=== PATIENT | male | born 1930 | race Caucasian/White ===

== ENCOUNTER 2016-02-09 22:00 | Emergency (ER) | payer MEDICARE, OTHER ==
--- NOTE | 2016-02-09 22:40 | RAD ---
EXAM DESCRIPTION: XR CHEST 1 VIEW CLINICAL HISTORY: 85-year-old male with wheezing. COMPARISON: 07/03/2015. TECHNIQUE: Single AP view of the chest was obtained portably. FINDINGS: Cardiac mediastinal silhouette poorly visualized secondary to low lung volumes and dense adjacent opacification. Tortuous atherosclerotic thoracic aorta. Low lung volumes and dense airspace opacification. Bilaterally left greater than right suggesting pleural fluid collection, edema with or without superimposed infectious process. No gross pneumothoraces. Right-sided ventriculoperitoneal shunt catheter is identified terminating off the field of view of the examination. The tip is not visualized. The visualized bones reveal diffuse demineralization and degenerative change. IMPRESSION: Low lung volumes and dense airspace opacification. Bilaterally left greater than right suggesting pleural fluid collection, edema with or without superimposed infectious process. Cardiac decompensation, multifocal pneumonia may be considered in the differential. Electronically signed by: Josette Valdivia MD 02/09/2016 22:38
[2016-02-09 22:46] VITALS: TEMP 101.2
--- NOTE | 2016-02-09 23:25 | ED.PDOC ---
History of Present Illness - General Chief Complaint: Respiratory Problem Stated Complaint: fever and oxygen desaturation Time Seen by Provider: 02/09/16 23:24 Source: patient, RN notes reviewed, Vital Signs reviewed, EMS notes reviewed Exam Limitations: no limitations - History of Present Illness Initial Comments: stated that he developed fever and sob at about 7pm tonight got worse and decided to call ems Timing/Duration: 4-6 hours Severity: moderate Improving Factors: nothing Worsening Factors: nothing Associated Symptoms: shortness of breath Allergies/Adverse Reactions: Allergies NO KNOWN ALLERGY Allergy (Verified 07/03/15 10:58) Home Medications: Ambulatory Orders Aspirin [Aspirin Adult Low Dose] 81 mg PO DAILY 07/03/15 Cetirizine HCl [ZyrTEC] 10 mg PO DAILY 07/03/15 Dasatinib [Sprycel] 50 mg PO DAILY 07/03/15 Metoprolol Tartrate 25 mg PO DAILY 07/03/15 Tramadol HCl 50 mg PO Q6H PRN 07/03/15 predniSONE [Prednisone] 10 mg PO DAILY 07/03/15 Polyethylene Glycol 3350 [Miralax] 17 gm PO QDAC PRN #30 pckt 02/06/16 Calcium 600 mg PO 02/10/16 Cyanocobalamin [Vitamin B-12 Tr] 1,000 mcg PO 02/10/16 Memantine HCl-Donepezil HCl [Namzaric 14-10 mg] 1 cap PO 02/10/16 Review of Systems - Review of Systems Constitutional: States: fever EENTM: States: no symptoms reported Respiratory: States: see HPI, short of breath Cardiology: States: no symptoms reported Gastrointestinal/Abdominal: States: no symptoms reported Genitourinary: States: other - urgency Musculoskeletal: States: back pain, joint pain Neurological: States: depressed, emotional problems Endocrine: States: no symptoms reported Hematologic/Lymphatic: States: anemia, other - leukemia Past Medical History (General) - Patient Medical History Hx Cardiac Disorders: Yes - atrial fibrillation Hx Hypertension: Yes Hx Diabetes: No Hx Cancer: Yes - chronic lymphocytic leukemia Hx Other PMH: Yes - rheumatoid arthritis Surgical History: other - knee,elbow, carotid endarterectomy - Vaccination History Hx Tetanus, Diphtheria Vaccination: No Hx Influenza Vaccination: Yes Hx Pneumococcal Vaccination: Yes - Social History Hx Tobacco Use: Yes Hx Alcohol Use: No Hx Substance Use: No Hx Substance Use Treatment: No Hx Depression: No - Female History Patient : No Family Medical History - Family History Father Family History: Unknown Living Status: Hx Cardiac Disease: Yes Hx Family Diabetes: Yes Hx Family Cancer: Yes - lung,kidney Physical Exam - Physical Exam General Appearance: Alert, Comfortable, No apparent distress Ears, Nose, Throat: normal ENT inspection, normal pharynx Neck: non-tender, full range of motion, supple Respiratory: chest non-tender, decreased breath sounds, rales Cardiovascular/Chest: tachycardia - heart rate 98, irregularly irregular Gastrointestinal/Abdominal: non tender, soft, no organomegaly, no pulsatile mass Back Exam: no CVA tenderness, no vertebral tenderness Extremity: non-tender, normal inspection, no calf tenderness Neurologic: no motor/sensory deficits, alert, normal mood/affect Skin Exam: normal color, pallor Lymphatic: no adenopathy Progress - Results/Orders Results/Orders: 02/09/16 22:40 BLOOD CULTURE Stat 02/09/16 23:15 EKG STAT 02/09/16 23:28 TYPE AND SCREEN Stat 02/10/16 00:00 BNP [B-TYPE NATRIURETIC PEPTIDE/BNP] Stat Laboratory Results WBC 15.2 K/mm3 (4.8-10.8) H 02/09/16 22:40 RBC 2.71 M/mm3 (4.70-6.10) L 02/09/16 22:40 Hgb 7.4 gm/dL (14.0-18.0) L* 02/09/16 22:40 Hct 24.4 % (42.0-52.0) L 02/09/16 22:40 MCV 90.0 fl (80.0-94.0) 02/09/16 22:40 MCH 27.3 pg (27.0-31.0) 02/09/16 22:40 MCHC 30.2 g/dL (33.0-37.0) L 02/09/16 22:40 RDW 17.7 % (11.5-14.5) H 02/09/16 22:40 Plt Count 446 K/mm3 (130-400) H 02/09/16 22:40 MPV 6.8 fl (7.40-10.4) L 02/09/16 22:40 Absolute Neuts (auto) 10.90 K/uL (1.8-6.8) H 02/09/16 22:40 Absolute Lymphs (auto) 2.50 K/uL (1.0-3.4) 02/09/16 22:40 Absolute Monos (auto) 1.50 K/uL (0.2-0.8) H 02/09/16 22:40 Absolute Eos (auto) 0.30 K/uL (0.0-0.4) 02/09/16 22:40 Absolute Basos (auto) 0.10 K/uL (0.0-0.1) 02/09/16 22:40 Neutrophils % 71.8 % (42.0-78.0) 02/09/16 22:40 Lymphocytes % 16.3 % (20.0-50.0) L 02/09/16 22:40 Monocytes % 10.0 % (2.0-9.0) H 02/09/16 22:40 Eosinophils % 1.6 % (1.0-5.0) 02/09/16 22:40 Basophils % 0.3 % (0.0-2.0) 02/09/16 22:40 Sodium 141 mmol/L (135-145) 02/09/16 22:40 Potassium 3.6 mmol/L (3.6-5.0) 02/09/16 22:40 Chloride 101 mmol/L (101-111) 02/09/16 22:40 Carbon Dioxide 31 mmol/L (21-31) 02/09/16 22:40 Anion Gap 12.6 (12-18) 02/09/16 22:40 BUN 23 mg/dL (7-18) H 02/09/16 22:40 Creatinine 1.58 mg/dL (0.6-1.3) H 02/09/16 22:40 BUN/Creatinine Ratio 14.6 (10-20) 02/09/16 22:40 Random Glucose 128 mg/dL (70-105) H 02/09/16 22:40 Serum Osmolality 286.6 mOsm/L (275-295) 02/09/16 22:40 Lactic Acid 1.8 mmol/L (0.5-2.2) 02/09/16 22:40 Calcium 8.2 mg/dL (8.4-10.2) L 02/09/16 22:40 Total Bilirubin 0.6 mg/dL (0.2-1.0) 02/09/16 22:40 AST 18 IU/L (10-42) 02/09/16 22:40 ALT 10 IU/L (10-60) 02/09/16 22:40 Alkaline Phosphatase 46 IU/L (42-121) 02/09/16 22:40 Creatine Kinase 100 IU/L (38-174) 02/09/16 22:40 CK-MB (CK-2) 12.2 ng/mL (0.0-4.4) H* 02/09/16 22:40 CK-MB (CK-2) % Not Reportable 02/09/16 22:40 Troponin I 1.57 ng/mL (0.01-0.05) H* 02/09/16 22:40 Serum Total Protein 6.5 gm/dL (6.4-8.2) 02/09/16 22:40 Albumin 3.5 g/dl (3.2-5.5) 02/09/16 22:40 Globulin 3.0 gm/dL (2.3-3.5) 02/09/16 22:40 Albumin/Globulin Ratio 1.2 (1.1-1.9) 02/09/16 22:40 - EKG/XRAY/CT EKG: Fibrillation - atrial XRAY: chest - dense air space opacification bilaterally Departure - Departure Clinical Impression: Non-ST elevation (NSTEMI) myocardial infarction, Atrial fibrillation with rapid ventricular response, Chronic lymphocytic leukemia Pneumonia, organism unspecified Qualifiers: Laterality: bilateral Lung location: unspecified part of lung Qualifier Code: ( J18.9) Pneumonia, unspecified organism Time of Disposition: 01:00 - D/W Dr. Shell -hospitalist [facility] Disposition: Transfer to Hospital Departure Forms: ED Discharge - Pt. Copy, Patient Portal Self Enrollment Home Medications: Ambulatory Orders Aspirin [Aspirin Adult Low Dose] 81 mg PO DAILY 07/03/15 Cetirizine HCl [ZyrTEC] 10 mg PO DAILY 07/03/15 Dasatinib [Sprycel] 50 mg PO DAILY 07/03/15 Metoprolol Tartrate 25 mg PO DAILY 07/03/15 Tramadol HCl 50 mg PO Q6H PRN 07/03/15 predniSONE [Prednisone] 10 mg PO DAILY 07/03/15 Polyethylene Glycol 3350 [Miralax] 17 gm PO QDAC PRN #30 pckt 02/06/16 Calcium 600 mg PO 02/10/16 Cyanocobalamin [Vitamin B-12 Tr] 1,000 mcg PO 02/10/16 Memantine HCl-Donepezil HCl [Namzaric 14-10 mg] 1 cap PO 02/10/16
[2016-02-10] MEDS ORDERED: cefTRIAXone SODIUM 1 GM in SODIUM CHL 0.9% 50ML MIN-BAG+ 50 ML IVPB ONE (00:34)
[2016-02-10] MEDS ORDERED: cefTRIAXone SODIUM 1 GM VIAL ONE (00:52)
[2016-02-10] MEDS ORDERED: SODIUM CHL 0.9% 50ML MIN-BAG+ 50 ML IVPB ONE (00:52)
[2016-02-10] MEDS ORDERED: METOPROLOL SUCCINATE XL 25 MG TAB PO ONE (01:01)
[2016-02-10] MEDS ORDERED: METOPROLOL TARTRATE 25 MG TAB PO ONE (01:15)
[2016-02-10 01:47] VITALS: O2SAT 98
[2016-02-10 03:17] VITALS: BP 122/70
== END 2016-02-10 02:35 | disposition short-term general hospital (02) ==
LOC: ER 22:00
DX: I21.4 Non-ST elevation (NSTEMI) myocardial infarction (principal); I48.91 Unspecified atrial fibrillation; C91.10 Chronic lymphocytic leukemia of B-cell type not having achieved remission; J18.9 Pneumonia, unspecified organism; I10 Essential (primary) hypertension; M06.9 Rheumatoid arthritis, unspecified; Z87.891 Personal history of nicotine dependence; Z80.1 Family history of malignant neoplasm of trachea, bronchus and lung; Z80.51 Family history of malignant neoplasm of kidney; Z79.899 Other long term (current) drug therapy; Z79.82 Long term (current) use of aspirin
CPT/HCPCS: 36415; 71010; 80053; 82550; 82553; 83605; 83880; 84484; 85025; 87040; 93005; J0696; J7050